=== PATIENT | male | born 1985 | race African-American/Black ===

== ENCOUNTER 2017-11-16 17:47 | Emergency (ER) | payer MEDICAID ==
[~2017-11-16] VITALS: Ht 182.9 cm; Wt 83.0 kg
[2017-11-16 18:26] LABS: BASOPHILS % 0.9 % (0.0-2.0); EOSINOPHILS % 0.8 % (0.0-5.0); HEMATOCRIT. 44.4 % (42.0-52.0); HEMOGLOBIN. 14.8 g/dL (14.0-18.0); LYMPHOCYTES % 23.8 % (20.0-50.0); MEAN CORPUSCULAR HEMOGLOBIN 30.6 pg (28.0-32.0); MEAN CORPUSCULAR VOLUME 91.9 fL (80.0-94.0); MEAN PLATELET VOLUME 8.2 fl (7.4-10.4); MONOCYTES % 6.4 % (2.0-8.0); NEUTROPHILS % 68.1 % (40.0-76.0); PLATELET 289 x1000/uL (130-400); RED BLOOD CELL COUNT 4.83 mill/uL (4.7-6.1); RED CELL DISTRIBUTION WIDTH 14.6 % (11.6-14.6)
[2017-11-16 18:28] LABS: CHLORIDE 105 mEq/L (98-107)
[2017-11-16] MEDS ORDERED: KETOROLAC 60MG/2ML VIAL IM STA (21:00)
[2017-11-16] MEDS ORDERED: METOCLOPRAMIDE HCL 10MG/2ML VIAL IM ONE (21:00)
[2017-11-16 21:03] LABS: CLARITY URINE CLEAR (CLEAR); COLOR URINE YELLOW (YELLOW); KETONES URINE NEGATIVE (NEGATIVE); LEUKOCYTE ESTERASE URINE NEGATIVE (NEGATIVE); NITRITE URINE NEGATIVE (NEGATIVE); OCCULT BLOOD URINE NEGATIVE (NEGATIVE); PROTEIN URINE NEGATIVE (NEGATIVE)
[2017-11-16 21:14] LABS: *AMPHETAMINES SCREEN URINE PRESUMTIVE POSITIVE (NEGATIVE); *BARBITURATES SCREEN URINE NEGATIVE (NEGATIVE); *BENZODIAZEPINES SCREEN URINE NEGATIVE (NEGATIVE); *COCAINE SCREEN URINE NEGATIVE (NEGATIVE); METHADONE URINE SCREEN NEGATIVE (NEGATIVE); OPIATES URINE SCREEN NEGATIVE (NEGATIVE)
[2017-11-16 21:15] LABS: CANNABINOID URINE SCREEN PRESUMTIVE POSITIVE (NEGATIVE); PHENCYCLIDINE URINE SCREEN NEGATIVE (NEGATIVE)
[2017-11-16 22:11] VITALS: BP 126/70
== END 2017-11-16 22:17 | disposition home or self-care (01) ==
LOC: ER 17:47
DX: G44.89 Other headache syndrome (principal); K02.9 Dental caries, unspecified; F12.90 Cannabis use, unspecified, uncomplicated
CPT/HCPCS: 36415; 80053; 80305; 81003; 85025; 96372; 99284; J1885; J2765

== ENCOUNTER 2021-02-20 16:47 | Emergency (ER) | payer OTHER, MEDICAID ==
[~2021-02-20] VITALS: Ht 182.9 cm; Wt 90.0 kg
[2021-02-20 17:37] LABS: BASOPHILS % 0.6 % (0.0-2.0); EOSINOPHILS % 0.2 % (0.0-5.0); HEMATOCRIT. 46.8 % (42.0-52.0); LYMPHOCYTES % 17.7 % (20.0-50.0); MEAN CORPUSCULAR HEMOGLOBIN 30.6 pg (28.0-32.0); MEAN CORPUSCULAR VOLUME 89.5 fL (80.0-94.0); MEAN PLATELET VOLUME 8.4 fl (7.4-10.4); MONOCYTES % 5.8 % (2.0-8.0); NEUTROPHILS % 75.7 % (40.0-76.0); PLATELET 407 x1000/uL (130-400); RED BLOOD CELL COUNT 5.23 mill/uL (4.7-6.1); RED CELL DISTRIBUTION WIDTH 13.7 % (11.6-14.6)
[2021-02-20 17:44] LABS: CHLORIDE 107 mEq/L (98-107)
[2021-02-20] MEDS ORDERED: SODIUM CHLORIDE 0.9% 1,000 ML IV ONE (18:00)
[2021-02-20 20:00] VITALS: BP 133/83
== END 2021-02-20 20:32 | disposition home or self-care (01) ==
LOC: ER 16:47
DX: N17.9 Acute kidney failure, unspecified (principal); T40.995A Adverse effect of other psychodysleptics [hallucinogens], initial encounter; Y92.9 Unspecified place or not applicable
CPT/HCPCS: 36415; 80048; 85025; 96360; 99283; J7030

== ENCOUNTER 2021-09-03 14:52 | Emergency (ER) | payer MEDICAID, OTHER ==
[~2021-09-03] VITALS: Ht 182.9 cm; Wt 91.0 kg
[2021-09-03 15:27] VITALS: BP 132/83
== END 2021-09-03 18:55 | disposition home or self-care (01) ==
LOC: ER 14:52
DX: T43.621A Poisoning by amphetamines, accidental (unintentional), initial encounter (principal); F12.10 Cannabis abuse, uncomplicated; F16.10 Hallucinogen abuse, uncomplicated; Y92.018 Other place in single-family (private) house as the place of occurrence of the external cause
CPT/HCPCS: 99283